=== PATIENT | female | born 1975 | race Caucasian/White ===

== ENCOUNTER 2021-08-07 13:33 | Day surgery (SDC) | payer OTHER ==
[~2021-08-07] VITALS: Ht 160 cm; Wt 69.4 kg
[~2021-08-07 13:33] MED LIST: ALBU90OI61 INH; Aciphex20 MG PO; ERGO50000 PO; ESOM20 PO; ESTRADIOL1 MG PO; FLUSAL2505 IH; OMEP20ER PO; PROGESTERONE200 M1 PO; Primidone50 MG PO; VITAMIN D325 MC3 PO; YAS; ZYRTEC10 M2 PO
--- NOTE | 2021-08-07 15:25 | NUR ---
08/07/21 1525 Madyson Mancuso PT. WITH HEAD TREMOR POST ENDO. DIDN'T NOTICE IT IN PREOP. PT. HAS HEAD TREMORS & TAKES MEDICATION FOR IT.
== END 2021-08-07 15:20 | disposition home or self-care (01) ==
LOC: ORSCSDS 13:33
PROVIDERS: Internal Medicine Gastroenterology
PROC: 0DB58ZX Excision of Esophagus, Via Natural or Artificial Opening Endoscopic, Diagnostic (ICD-10-PCS; principal; 2021-08-07 15:15)
PROC: 0DB68ZX Excision of Stomach, Via Natural or Artificial Opening Endoscopic, Diagnostic (ICD-10-PCS; principal; 2021-08-07 15:15)
DX: K22.70 Barrett's esophagus without dysplasia (principal); R11.2 Nausea with vomiting, unspecified; K22.2 Esophageal obstruction; K29.70 Gastritis, unspecified, without bleeding; J45.909 Unspecified asthma, uncomplicated; Z79.899 Other long term (current) drug therapy
CPT/HCPCS: 87081; 88305; 88342; J0330; J0461; J2405; J2704; J7120